=== PATIENT | female | born 1990 | race Caucasian/White ===

== ENCOUNTER 2019-12-09 09:10 | Day surgery (SDC) | payer MEDICAID ==
[2019-12-09] MEDS ORDERED: LIDOcaine 2% 5ml jelly ONE (09:55)
== END 2019-12-09 10:40 | disposition home or self-care (01) ==
LOC: WOUND CARE 09:10
PROVIDERS: ATTEND Nurse Practitioner
DX: S81.852A Open bite, left lower leg, initial encounter (principal); L97.822 Non-pressure chronic ulcer of other part of left lower leg with fat layer exposed; Z87.891 Personal history of nicotine dependence; W54.0XXA Bitten by dog, initial encounter; Y93.89 Activity, other specified; Y92.89 Other specified places as the place of occurrence of the external cause; Y99.8 Other external cause status
CPT/HCPCS: 97597; G0463

== ENCOUNTER 2019-12-14 13:45 | Day surgery (SDC) | payer MEDICAID ==
[2019-12-14] MEDS ORDERED: LIDOcaine 2% 5ml jelly ONE (14:03)
== END 2019-12-14 14:29 | disposition home or self-care (01) ==
LOC: WOUND CARE 13:45
PROVIDERS: ATTEND Nurse Practitioner
DX: S81.852D Open bite, left lower leg, subsequent encounter (principal); L97.222 Non-pressure chronic ulcer of left calf with fat layer exposed; Z87.891 Personal history of nicotine dependence; W54.0XXD Bitten by dog, subsequent encounter
CPT/HCPCS: 97597

== ENCOUNTER 2019-12-17 08:55 | Day surgery (SDC) | payer MEDICAID ==
[2019-12-17] MEDS ORDERED: LIDOcaine 2% 5ml jelly ONE (09:13)
== END 2019-12-17 09:52 | disposition home or self-care (01) ==
LOC: WOUND CARE 08:55
PROVIDERS: ATTEND Nurse Practitioner
DX: S81.852D Open bite, left lower leg, subsequent encounter (principal); L97.222 Non-pressure chronic ulcer of left calf with fat layer exposed; Z87.891 Personal history of nicotine dependence; W54.0XXD Bitten by dog, subsequent encounter
CPT/HCPCS: 97597

== ENCOUNTER 2019-12-21 10:20 | Day surgery (SDC) | payer MEDICAID ==
[2019-12-21] MEDS ORDERED: LIDOcaine 2% 5ml jelly ONE (10:49)
== END 2019-12-21 11:23 | disposition home or self-care (01) ==
LOC: WOUND CARE 10:20
PROVIDERS: ATTEND Nurse Practitioner
DX: S81.852D Open bite, left lower leg, subsequent encounter (principal); L97.522 Non-pressure chronic ulcer of other part of left foot with fat layer exposed; Z87.891 Personal history of nicotine dependence; W54.0XXD Bitten by dog, subsequent encounter
CPT/HCPCS: 97597

== ENCOUNTER 2020-01-04 10:25 | Day surgery (SDC) | payer MEDICAID | END 2020-01-04 11:15 | disposition home or self-care (01) | LOC: WOUND CARE 10:25 | PROVIDERS: ATTEND Nurse Practitioner | DX: S81.852D Open bite, left lower leg, subsequent encounter (principal); L97.222 Non-pressure chronic ulcer of left calf with fat layer exposed; Z87.891 Personal history of nicotine dependence; W54.0XXD Bitten by dog, subsequent encounter | CPT/HCPCS: 97597 ==

== ENCOUNTER 2024-10-02 20:46 | Emergency (ER) | payer MEDICAID ==
[~2024-10-02] VITALS: Ht 154.9 cm; Wt 70.5 kg
[2024-10-03] MEDS: acetaminophen 325mg tablet PO ONE (01:41)
[2024-10-03] MEDS: pantoprazole 40mg Tablet.DR PO ONE (01:41)
[2024-10-03 01:48] VITALS: BP 129/87; PULSE 89; RESP 16; TEMP 98.3; O2SAT 98
== END 2024-10-03 01:53 | disposition hospice, inpatient (51) ==
LOC: ER 20:46
DX: Z02.89 Encounter for other administrative examinations (principal); O32.1XX1 Maternal care for breech presentation, fetus 1; Z3A.01 Less than 8 weeks gestation of pregnancy
CPT/HCPCS: 76805; 99284